=== PATIENT | male | born 1960 | race Caucasian/White ===

== ENCOUNTER 2017-02-22 11:27 | Inpatient (IN) | payer BC ==
[~2017-02-22] VITALS: Ht 190.5 cm; Wt 113.5 kg
[2017-02-22] VITALS (12 sets, daily range): BP systolic 106–150; BP diastolic 65–97; PULSE 66–72; RESP 12–20; TEMP 98.1–98.8; O2SAT 93–99
[2017-02-22] MEDS ORDERED: CLAR10CA3 PO (11:35)
[2017-02-22] MEDS ORDERED: SODIUM CHLORIDE 0.9% FLUSH 10 ML FLUSH IVF PRN (11:45)
[2017-02-22] MEDS ORDERED: SODIUM CHLORID 0.9% 500 ML INJ 500 ML IV ONE (11:45)
--- NOTE | 2017-02-22 11:45 | PD ---
HPI Chief Complaint: Chest Pain Time Seen by Provider: 11:44 Travel History International Travel<30 days: No Contact w/Intl Traveler<30days: No Traveled to known affect area: No History of Present Illness HPI 56 year old male with no significant medical history presents to the ED for evaluation of left sided chest pressure; intermittently occurring over the last week. Pt has been vacationing from [place]. He drove his grandchildren to [place] on Saturday, 5 days ago. He developed diaphoresis, light headed sensation, and left sided chest pressure. He went to the ED there where he stayed for 6 hours and was discharged with strict instructions to return to an ED if the symptoms occurred again. Pt states that he has had intermittent episodes but not as severe throughout the week and he did not tell his . These happen at rest or with activity. He cannot think of any exacerbating or alleviating factors. However, today he was driving when he became diaphoretic, lightheaded , and the left-sided chest pressure and could not drive anymore on his own, so his drove him here to the emergency department. Patient took 3 baby aspirin prior to arrival. He states the shortness does not radiate anywhere. It is on the left side of his chest. It is associated with the diaphoresis and lightheadedness sensation. He has no cardiac history. He does not smoke tobacco cigarettes. He has no associated shortness of breath. His father did have a quintuple bypass at age of 83. He has no other symptoms to report at this time. [facility] Past Medical History Medical History: Denies Significant Hx Social History Alcohol Use: No Tobacco Use: No Substance Use: No Allergies-Medications (Allergen,Severity, Reaction): Coded Allergies: No Known Allergies (Unverified , 02/22/17) Reported Meds & Prescriptions Reported Meds & Active Scripts Active Reported Claritin (Loratadine) 10 Mg Cap Unknown Dose PO DAILY Review of Systems Except as stated in HPI: all other systems reviewed are Neg Physical Exam Narrative GENERAL: Well-nourished male patient, in no acute distress. SKIN: Focused skin assessment warm/dry. HEAD: Atraumatic. Normocephalic. EYES: Pupils equal and round. No scleral icterus. No injection or drainage. ENT: No nasal bleeding or discharge. Mucous membranes pink and moist. NECK: Trachea midline. No JVD. CARDIOVASCULAR: Regular rate and rhythm. No murmur appreciated. RESPIRATORY: No accessory muscle use. Clear to auscultation. Breath sounds equal bilaterally. GASTROINTESTINAL: Abdomen soft, non-tender, nondistended. Hepatic and splenic margins not palpable. MUSCULOSKELETAL: No obvious deformities. No clubbing. No cyanosis. No edema. NEUROLOGICAL: Awake and alert. No obvious cranial nerve deficits. Motor grossly within normal limits. Normal speech. PSYCHIATRIC: Appropriate mood and affect; insight and judgment normal. Data Data Last Documented VS Vital Signs Date Time Temp Pulse Resp B/P Pulse Ox O2 Delivery O2 Flow Rate FiO2 02/22/17 12:10 70 18 109/65 96 2 02/22/17 12:03 Nasal Cannula 02/22/17 11:29 98.2 Orders Electrocardiogram (02/22/17 11:41) Basic Metabolic Panel (Bmp) (02/22/17 11:41) Ckmb (Isoenzyme) Profile (02/22/17 11:41) Complete Blood Count With Diff (02/22/17 11:41) Magnesium (Mg) (02/22/17 11:41) Prothrombin Time / Inr (Pt) (02/22/17 11:41) Act Partial Throm Time (Ptt) (02/22/17 11:41) Troponin I (02/22/17 11:41) Lipase (02/22/17 11:41) Chest, Single Ap (02/22/17 11:41) Ecg Monitoring (02/22/17 11:41) Bilateral Bp Monitoring (02/22/17 11:41) Iv Access Insert/Monitor (02/22/17 11:41) Oximetry (02/22/17 11:41) Oxygen Administration (02/22/17 11:41) Sodium Chloride 0.9% Flush (Ns Flush) (02/22/17 11:45) Nitroglycerin Sl (Nitrostat Sl) (02/22/17 11:45) Sodium Chlorid 0.9% 500 Ml Inj (Ns 500 M (02/22/17 11:45) CKMB (02/22/17 11:48) CKMB% (02/22/17 11:48) Admit Order (Ed Use Only) (02/22/17 13:09) Labs Laboratory Tests Test 02/22/17 11:48 White Blood Count 6.2 TH/MM3 Red Blood Count 5.27 MIL/MM3 Hemoglobin 16.2 GM/DL Hematocrit 46.7 % Mean Corpuscular Volume 88.7 FL Mean Corpuscular Hemoglobin 30.8 PG Mean Corpuscular Hemoglobin 34.7 % Concent Red Cell Distribution Width 12.9 % Platelet Count 169 TH/MM3 Mean Platelet Volume 8.7 FL Neutrophils (%) (Auto) 54.8 % Lymphocytes (%) (Auto) 34.7 % Monocytes (%) (Auto) 9.1 % Eosinophils (%) (Auto) 0.9 % Basophils (%) (Auto) 0.5 % Neutrophils # (Auto) 3.4 TH/MM3 Lymphocytes # (Auto) 2.2 TH/MM3 Monocytes # (Auto) 0.6 TH/MM3 Eosinophils # (Auto) 0.1 TH/MM3 Basophils # (Auto) 0.0 TH/MM3 CBC Comment DIFF FINAL Differential Comment Prothrombin Time 10.5 SEC Prothromb Time International 1.0 RATIO Ratio Activated Partial 26.6 SEC Thromboplast Time Sodium Level 139 MEQ/L Potassium Level 4.0 MEQ/L Chloride Level 107 MEQ/L Carbon Dioxide Level 26.7 MEQ/L Anion Gap 5 MEQ/L Blood Urea Nitrogen 14 MG/DL Creatinine 1.02 MG/DL Estimat Glomerular Filtration 75 ML/MIN Rate Random Glucose 96 MG/DL Calcium Level 8.3 MG/DL Magnesium Level 2.2 MG/DL Total Creatine Kinase 113 U/L Creatine Kinase MB 0.8 NG/ML Troponin I LESS THAN 0.02 NG/ML Lipase 145 U/L MDM Medical Decision Making Medical Screen Exam Complete: Yes Emergency Medical Condition: Yes Medical Record Reviewed: Yes Differential Diagnosis ACS versus esophageal spasm versus herpatic pre-drome versus muscle spasm versus anxiety versus less likely based on Wells criteria PE Narrative Course 56-year-old male presents to the emergency department for evaluation. Patient appears without distress. He took 3 baby aspirin prior to arrival. He is still having the chest pressure. Sublingual nitroglycerin was administered and after 2 tablets, pain completely subsided. Vital signs remain stable. CBC and BMP are without acute concern. Initial troponin is less than 0.02. EKG is normal sinus rhythm without any ST elevation or depression. I discussed the patient with my attending physician Dr. Burch. Patient will be admitted to the chest pain center for further evaluation. 1422 REDD De Guzman has evaluated patient and discussed with Dr. Fletcher, preparatory technician on-call for [facility] and they feel patient should be admitted to medicine with a consult to cardiology. CTPA is ordered to r/o PE as source of patient's pain, despite normal vital signs, no shortness of breath, and history more concerning for unstable angina. [address] Burgos. Pt has been admitted to the residents medical service and a consult will be placed to him. He requests pt remain NPO Diagnosis Primary Impression: Left chest pressure Admitting Information Admitting Physician Requests: Observation Condition: Stable Jeanine Rothman Feb 22, 2017 11:45
[2017-02-22] MEDS: NITROGLYCERIN 0.4 MG SL 25 TABS/BTL SL SCH ×3 (11:50→11:59)
[2017-02-22 12:05] LABS: AUTOMATED NEUTROPHIL # 3.4 TH/MM3 (1.8-7.7); BASOPHIL % 0.5 % (0.0-2.0); EOSINOPHIL # 0.1 TH/MM3 (0-0.4); EOSINOPHIL % 0.9 % (0.0-4.0); HEMATOCRIT 46.7 % (39.0-51.0); HEMO FLAGS DIFF FINAL; LYMPH % 34.7 % (9.0-44.0); LYMPHOCYTE # 2.2 TH/MM3 (1.0-4.8); MEAN CELL VOLUME 88.7 FL (80.0-100.0); MEAN CORPUSCULAR HEMOGLOBIN 30.8 PG (27.0-34.0); MEAN CORPUSCULAR HGB CONC 34.7 % (32.0-36.0); MONO % 9.1 % (0.0-8.0); NEUT % 54.8 % (16.0-70.0); PLATELET COUNT 169 TH/MM3 (150-450); RED BLOOD COUNT 5.27 MIL/MM3 (4.50-5.90); RED CELL DISTRIBUTION WIDTH 12.9 % (11.6-17.2); WHITE BLOOD COUNT 6.2 TH/MM3 (4.0-11.0)
[2017-02-22 12:13] LABS: APTT (PATIENT) 26.6 SEC (24.3-30.1); PROTHROMBIN TIME - PATIENT 10.5 SEC (9.8-11.6)
[2017-02-22 12:19] LABS: ANION GAP 5 MEQ/L (5-15); BICARBONATE 26.7 MEQ/L (21.0-32.0); BLOOD UREA NITROGEN 14 MG/DL (7-18); CHLORIDE 107 MEQ/L (98-107); GLOMERULAR FILTRATION RATE 75 ML/MIN (>89); MAGNESIUM 2.2 MG/DL (1.5-2.5); SODIUM (NA) 139 MEQ/L (136-145)
[2017-02-22 12:23] LABS: CREATINE KINASE 113 U/L (39-308)
[2017-02-22 12:35] LABS: CKMB 0.8 NG/ML (0.5-3.6)
--- NOTE | 2017-02-22 13:07 | RADRPT ---
EXAM DATE/TIME: 02/22/2017 12:29 [facility] COMPARISON: No previous studies available for comparison. INDICATIONS : Chest pain, sweating, and fatigue. MEDICAL HISTORY : None. SURGICAL HISTORY : None. ENCOUNTER: Initial ACUITY: 4 - 6 days PAIN SCORE: 3/10 LOCATION: Bilateral chest FINDINGS: A single view of the chest demonstrates the lungs to be symmetrically aerated without evidence of mas s, infiltrate or effusion. The cardiomediastinal contours are unremarkable. Osseous structures are intact. CONCLUSION: No acute disease. Dao Becerra MD on February 22, 2017 at 13:05 Board Certified Radiologist. This report was verified electronically.
[2017-02-22] MEDS ORDERED: IOHEXOL 350 MG/ML 10 ML VIAL (for RAD DIAG) IV ONE (14:00)
--- NOTE | 2017-02-22 14:48 | HHI.HP ---
[facility] Service Family Medicine Primary Care Physician Non-Staff Admission Diagnosis L sided chest pressure Diagnoses: International Travel<30 Days: No Contact w/Intl Traveler<30days: No Known Affected Area: No History of Present Illness 56 year old male with no significant medical history presents to the ED for evaluation of left sided chest pressure; intermittently occurring over the last week. Pt has been vacationing from [place]. He drove his grandchildren to [place] on Saturday, 5 days ago. He developed diaphoresis, light headed sensation, and left sided chest pressure. He went to the ED there where he stayed for 6 hours and was discharged with strict instructions to return to an ED if the symptoms occurred again. Pt states that he has had intermittent episodes but not as severe throughout the week and he did not tell his . These happen at rest or with activity. He cannot think of any exacerbating or alleviating factors. However, today he was driving when he became diaphoretic, lightheaded , and the left-sided chest pressure and could not drive anymore on his own, so his drove him here to the emergency department. Patient took 3 baby aspirin prior to arrival. He states the shortness does not radiate anywhere. It is on the left side of his chest. It is associated with the diaphoresis and lightheadedness sensation. He has no cardiac history. He does not smoke tobacco cigarettes. He has no associated shortness of breath. His father did have a quintuple bypass at age of 83. He has no other symptoms to report at this time. Past Family Social History Allergies: Coded Allergies: No Known Allergies (Unverified , 02/22/17) Physical Exam Vital Signs Vital Signs Date Time Temp Pulse Resp B/P Pulse Ox O2 Delivery O2 Flow Rate FiO2 02/22/17 12:10 70 18 109/65 96 2 02/22/17 12:05 71 12 123/70 96 02/22/17 12:03 98 Nasal Cannula 2 02/22/17 12:00 70 18 136/87 94 Nasal Cannula 2 02/22/17 11:51 89 99 02/22/17 11:51 100 Nasal Cannula 2 02/22/17 11:29 98.2 70 17 141/97 98 Physical Exam GENERAL: This is a well-nourished, well-developed patient, in no apparent distress. SKIN: No rashes, ecchymoses or lesions. Cool and dry. HEAD: Atraumatic. Normocephalic. No temporal or scalp tenderness. EYES: Pupils equal round and reactive. Extraocular motions intact. No scleral icterus. No injection or drainage. ENT: Nose without bleeding, purulent drainage or septal hematoma. Throat without erythema, tonsillar hypertrophy or exudate. Uvula midline. Airway patent. NECK: Trachea midline. No JVD or lymphadenopathy. Supple, nontender, no meningeal signs. CARDIOVASCULAR: Regular rate and rhythm without murmurs, gallops, or rubs. RESPIRATORY: Clear to auscultation. Breath sounds equal bilaterally. No wheezes , rales, or rhonchi. GASTROINTESTINAL: Abdomen soft, non-tender, nondistended. No hepato-splenomegaly , or palpable masses. No guarding. MUSCULOSKELETAL: Extremities without clubbing, cyanosis, or edema. No joint tenderness, effusion, or edema noted. No calf tenderness. Negative Homans sign bilaterally. NEUROLOGICAL: Awake and alert. Cranial nerves II through XII intact. Motor and sensory grossly within normal limits. Five out of 5 muscle strength in all muscle groups. Normal speech. Laboratory Laboratory Tests Test 02/22/17 11:48 White Blood Count 6.2 Red Blood Count 5.27 Hemoglobin 16.2 Hematocrit 46.7 Mean Corpuscular Volume 88.7 Mean Corpuscular Hemoglobin 30.8 Mean Corpuscular Hemoglobin 34.7 Concent Red Cell Distribution Width 12.9 Platelet Count 169 Mean Platelet Volume 8.7 Neutrophils (%) (Auto) 54.8 Lymphocytes (%) (Auto) 34.7 Monocytes (%) (Auto) 9.1 Eosinophils (%) (Auto) 0.9 Basophils (%) (Auto) 0.5 Neutrophils # (Auto) 3.4 Lymphocytes # (Auto) 2.2 Monocytes # (Auto) 0.6 Eosinophils # (Auto) 0.1 Basophils # (Auto) 0.0 CBC Comment DIFF FINAL Differential Comment Prothrombin Time 10.5 Prothromb Time International 1.0 Ratio Activated Partial 26.6 Thromboplast Time Sodium Level 139 Potassium Level 4.0 Chloride Level 107 Carbon Dioxide Level 26.7 Anion Gap 5 Blood Urea Nitrogen 14 Creatinine 1.02 Estimat Glomerular Filtration 75 Rate Random Glucose 96 Calcium Level 8.3 Magnesium Level 2.2 Total Creatine Kinase 113 Creatine Kinase MB 0.8 Troponin I LESS THAN 0.02 Lipase 145 Result Diagram: 02/22/17 1148 02/22/17 1148 Physician Certification Order for Inpatient Services The services are ordered in accordance with Medicare regulations or non- Medicare payer requirements, as applicable. In the case of services not specified as inpatient-only, they are appropriately provided as inpatient services in accordance with the 2-midnight benchmark. days is the estimated time the patient will need to remain in the hospital, assuming treatment plan goals are met and no additional complications. Sol Lara MD R2 Feb 22, 2017 14:48
--- NOTE | 2017-02-22 14:49 | HHI.HP ---
[facility] Service Family Medicine Primary Care Physician Non-Staff Admission Diagnosis L sided chest pressure Diagnoses: International Travel<30 Days: No Contact w/Intl Traveler<30days: No Known Affected Area: No History of Present Illness 56-year-old male, no significant medical history, presents with episode of chest tightness and sweating that started at 10:30 AM today while riding in the car. He describes the feeling as chest tightness and not exactly pain but if he were to where to put chest pain on a pain scale he would say a 2/10 pain. Patient had a similar episode on Saturday for 1 hour while riding in the car and went to the hospitalwith a full cardiac workup (EKG and troponins) negative. He says he has felt chest discomfort all week. He denies any shortness of breath or dizziness during the episode. He denies any radiation of the chest tightness to anywhere else in his body. He did not have nausea or vomiting. He shouldn't did not feel any stress at the time and does not feel like it was a panic attack. However, during the episode the patient did have feelings of impending doom. The past week the patient has been on on a long road trip has been in the car for a long period of time. Recently, he did break 3 of his ribs by jumping off a shelf in his home. He says he saw after that and there was no decision for any medical management. Review of Systems Constitutional: DENIES: Fever, Weight loss Endocrine: DENIES: Polyuria Eyes: DENIES: Blurred vision, Eye pain Ears, nose, mouth, throat: DENIES: Nasal discharge, Epistaxis Respiratory: DENIES: Cough, Shortness of breath Cardiovascular: DENIES: Syncope Gastrointestinal: DENIES: Constipation, Diarrhea Genitourinary: DENIES: Urinary incontinence Musculoskeletal: DENIES: Back pain Integumentary: DENIES: Pruritus, Rash Neurologic: DENIES: Headache, Seizures Psychiatric: DENIES: Depression Past Family Social History Past Medical History Patient states he has had high blood pressures recently but has never been started on medication 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, last physical was on August 21 and there were no significant remarks on exam Past Surgical History 1983 tonsillectomy Allergies: Coded Allergies: No Known Allergies (Unverified , 02/22/17) Family History dad- alive, quintuple bypass at 83 - open heart mom - ablation of heart, afibb Social History Denies 3 Physical Exam Vital Signs Vital Signs Date Time Temp Pulse Resp B/P Pulse Ox O2 Delivery O2 Flow Rate FiO2 02/22/17 12:10 70 18 109/65 96 2 02/22/17 12:05 71 12 123/70 96 02/22/17 12:03 98 Nasal Cannula 2 02/22/17 12:00 70 18 136/87 94 Nasal Cannula 2 02/22/17 11:51 89 99 02/22/17 11:51 100 Nasal Cannula 2 02/22/17 11:29 98.2 70 17 141/97 98 Physical Exam GENERAL: This is a well-nourished, well-developed patient, in no apparent distress. SKIN: No rashes, ecchymoses or lesions. Cool and dry. HEAD: Atraumatic. Normocephalic. No temporal or scalp tenderness. EYES: Pupils equal round and reactive. Extraocular motions intact. No scleral icterus. No injection or drainage. ENT: Nose without bleeding, purulent drainage or septal hematoma. Throat without erythema, tonsillar hypertrophy or exudate. Uvula midline. Airway patent. Teeth are poorly taken care of and multiple cavities are noted NECK: Trachea midline. No JVD or lymphadenopathy. Supple, nontender, no meningeal signs. CARDIOVASCULAR: Regular rate and rhythm without murmurs, gallops, or rubs. RESPIRATORY: Clear to auscultation. Breath sounds equal bilaterally. No wheezes , rales, or rhonchi. GASTROINTESTINAL: Abdomen soft, non-tender, nondistended. No hepato-splenomegaly , or palpable masses. No guarding. MUSCULOSKELETAL: Extremities without clubbing, cyanosis, or edema. No joint tenderness, effusion, or edema noted. No calf tenderness. Negative Homans sign bilaterally. No tenderness to palpation over chest area. The patient says the pain is not reproducible by palpation. NEUROLOGICAL: Awake and alert. Cranial nerves II through XII intact. Motor and sensory grossly within normal limits. Five out of 5 muscle strength in all muscle groups. Normal speech. Laboratory Laboratory Tests Test 02/22/17 11:48 White Blood Count 6.2 Red Blood Count 5.27 Hemoglobin 16.2 Hematocrit 46.7 Mean Corpuscular Volume 88.7 Mean Corpuscular Hemoglobin 30.8 Mean Corpuscular Hemoglobin 34.7 Concent Red Cell Distribution Width 12.9 Platelet Count 169 Mean Platelet Volume 8.7 Neutrophils (%) (Auto) 54.8 Lymphocytes (%) (Auto) 34.7 Monocytes (%) (Auto) 9.1 Eosinophils (%) (Auto) 0.9 Basophils (%) (Auto) 0.5 Neutrophils # (Auto) 3.4 Lymphocytes # (Auto) 2.2 Monocytes # (Auto) 0.6 Eosinophils # (Auto) 0.1 Basophils # (Auto) 0.0 CBC Comment DIFF FINAL Differential Comment Prothrombin Time 10.5 Prothromb Time International 1.0 Ratio Activated Partial 26.6 Thromboplast Time Sodium Level 139 Potassium Level 4.0 Chloride Level 107 Carbon Dioxide Level 26.7 Anion Gap 5 Blood Urea Nitrogen 14 Creatinine 1.02 Estimat Glomerular Filtration 75 Rate Random Glucose 96 Calcium Level 8.3 Magnesium Level 2.2 Total Creatine Kinase 113 Creatine Kinase MB 0.8 Troponin I LESS THAN 0.02 Lipase 145 Result Diagram: 02/22/17 1148 02/22/17 1148 Assessment and Plan Assessment and Plan 56-year-old male, with no significant history, presents to the ED with second episode of chest pain this week. Differential includes PE, unstable angina, or costochondritis Code Status Full code Discussed Condition With Patient seen and examined with Dr. Prince Problem List: (1) Left chest pressure Status: Acute Plan: Differential includes PE, unstable angina, or costochondritis. Patient took 3 aspirin before arrival to the ED and this did not resolve his pain. However, patient's pain did resolve with nitroglycerin in the ED. Primary concern at this time is for unstable angina. - CXR: no acute disease - CTA: Negative - EKG: Negative - Troponin 0.22 -Cardiology follow-up: Donefollow-up Recs - patient nothing by mouth for cardiac catheterization Follow-up results of cardiac catheter (2) Ribs, multiple fractures Status: Chronic Plan: As stated by patient - Not evident on chest x-ray or CT at this time (3) FEN/PPX Status: Acute Plan: Fluids: None, appears hydrated on exam with appropriate I/Os, NPO until cardiac cath only Electrolytes: f/u BMP Nutrition: NPO until cardiac cath GI ppx: N/A DVT ppx: Sol Santos MD R2 Feb 22, 2017 14:49
--- NOTE | 2017-02-22 15:32 | RADRPT ---
EXAM DATE/TIME: 02/22/2017 15:17 [facility] COMPARISON: No previous studies available for comparison. INDICATIONS : Chest tightness, diaphoresis,lethargy. IV CONTRAST: 75 cc Omnipaque 350 (iohexol) IV RADIATION DOSE: 8.56 CTDIvol (mGy) MEDICAL HISTORY : None SURGICAL HISTORY : None. ENCOUNTER: Initial ACUITY: 2 weeks PAIN SCALE: 8/10 LOCATION: Bilateral chest TECHNIQUE: Volumetric scanning of the chest was performed using a pulmonary embolism protocol MIP images were re constructed. Using automated exposure control and adjustment of the mA and/or kV according to patien t size, radiation dose was kept as low as reasonably achievable to obtain optimal diagnostic quality images. DICOM format image data is available electronically for review and comparison. Follow-up recommendations for detected pulmonary nodules are based at a minimum on nodule size and pa tient risk factors according to Fleischner Society Guidelines. FINDINGS: PULMONARY ARTERIES: No filling defects are seen in the pulmonary arteries through the segmental level. LUNGS: There is no consolidation or pneumothorax . No concerning pulmonary nodule is visualized. PLEURAE: There is no pleural thickening or pleural effusion. MEDIASTINUM: There is good visualization of the great vessels of the middle mediastinum. No evidence of mediastin al or hilar adenopathy/mass. MUSCULOSKELETAL: Within normal limits for patient age. MISCELLANEOUS: The visualized upper abdominal organs demonstrate no acute abnormality. CONCLUSION: 1. Negative examination. Jd Fox MD on February 22, 2017 at 15:28 Board Certified Radiologist. This report was verified electronically.
[2017-02-22] MEDS ORDERED: HEPARIN-NS/PF INJ 500 ML ONE (18:02)
[2017-02-22] MEDS ORDERED: VERAPAMIL HCL 5 MG/2 ML VIAL ONE (18:03)
[2017-02-22] MEDS ORDERED: MIDAZOLAM HCL 2 MG/2 ML VIAL ONE (18:03)
[2017-02-22] MEDS ORDERED: HEPARIN SODIUM - IV 10,000 UNITS/10 ML VIAL ONE (18:03)
[2017-02-22] MEDS ORDERED: NITROGLYCERIN INJ 5 ML ONE (18:05)
--- NOTE | 2017-02-22 19:19 | CATHPROC ---
[employer] HIS Report Study Information Study Number Admission Scheduled Start Study Start [id number] Feb 22 2017 4:59PM 02/22/2017 Feb 22 2017 6:03PM Study Type [place] Service Left/Possible PCI Cardiac Catheterization Admit Source Facility Department Emergency department [facility] - Language Assistant Physician and Clinical Staff Initial Jose Norris Conditioner Tumbler Adriana Torre,RN Conditioner Tumbler Harry Salmeron,RICHIE Recorder Adriana Pham,RT(R) Recorder Esau RizviRT(R) Scrub Lay Thomas,KONRAD TECH2 Procedures Performed Procedure Location (Site) Vessel Name Coronary Angiograms LCA Left Coronary Coronary Angiograms RCA Right Coronary IVUS Lft Main Left Coronary Wire insertion Radial (right) Radial Art. 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 Description Size Mfg Part Number Used/Scraped WIRE, BALANCE MIDDLEWEIGHT [id number] 18:40 [employer] 190CM Used 190CM *[id number] TRANSDUCER, TRUWAVE [id number] 18:09 TRIVEDI CUENCA * Used W/STOCKCOCK *[id number] 534-518T *[id number] 534-518T *[id number] 534-520T *[id number] 534-521T *[id number] 534-523T *[id number] 18:09 Spotsetter PACK, CCL CUSTOM * Used *[id number] 18:09 Spotsetter SUPPORT, ARTERIAL ADULT 18021 *[id number] Used [id number] 18:38 MEDTRONIC/AVE EBU 3.5 Z2 GUIDE CATHETER FR 6 Used *[id number] BAND, RADIAL COMPRESSION TR [id number] 19:01 [employer]ention[employer] MEDICAL 29CM Used LARGE 29 *[id number] 18:40 [email or web address] PACK, ANGIOPLASTY * [id number] Used [id number] 18:09 [email or web address] WIRE, EXCHANGE 260CM 3MMJ 260CM Used *[id number] 18:09 NAMIC MANIFOLD, 4 PORT * Used *[id number] 18:09 NYCOMED OMNIPAQUE, 350 MG, 150ML 150ML [id number] Used [id number] 18:09 [employer] MEDICAL BLANKET,WARM AIR CCL * Used *[id number] SHEATH, FR6 TRANSRADIAL RM*[id number] 18:09 Nagual Sounds MEDICAL FR 6 Used SLENDER 10CM *[id number] CATHETER, [employer] [place] [id number] 18:38 VOLCANO Used IMAGING *[id number] Equipment Model, Serial, Lot Number and Expiration Data Description Model Number Serial Number Lot Number Expiration Date PACK, ANGIOPLASTY [id number] 08-07-2019 History: Allergies Allergy Reaction No Known Allergies History: Risk Factors Family History of Hypertension Dyslipidemia Previous TN Previous Heart Failure Premature CAD No No Yes No No Prior Valve Prior PCI Prior CABG Surgery No No No Cerebrovascular Peripheral Artery Chronic Lung On Dialysis Diabetes Disease Disease Disease No No No No No History: Symptoms/Diagnosis Selection Items Chest pain History: Stress Tests Stress or Imaging Studies Performed No History: Other Disease Selection Items HTN History: Other Current Smoker No Labs Hgb (g/dl) Hct (%) RBC (MIL/MM3) WBC (l/cumm) Platelets (thousands) 11.60-17.00 35.00-51.00 4.00-5.90 4.00-11.00 150.00-450.00 16.2 46.7 5.2 6.2 169 Glucose (mg/dl) BUN (mg/dl) Creatinine (mg/dl) BUN:Creatinine (1:x) 74.00-106.00 7.00-18.00 0.50-1.30 10.00-20.00 96 14 1.0 14 Na (meq/l) K (meq/l) Cl (meq/l) CO2 (mmol/L) Ca (mg/dl) 136.00-145.00 3.50-5.10 98.00-107.00 21.00-32.00 8.50-10.10 139 4 107 26.7 8.3 PT (sec) PTT (sec) INR (PTT:PT) 9.80-11.60 24.30-30.10 0.90-1.10 10.5 26.6 1 Troponin I (ng/ml) CPK (u/l) CPK-MB (ng/ML) 0.02-0.05 26.00-308.00 0.50-3.60 0.02 113 0.8 Medication Medication Total Dose (Bolus/Oral) Medication Total Dosage/Unit FENTANYL 25 mcg HEPARIN 7700 units RADIAL COCKTAIL 5 mL (Bolus) VERSED 0.5 mg Medications (Bolus/Oral) Medication Time Given Dosage/Unit Administered By Reason VERSED 02/22/2017 6:17:00 PM 0.5 mg Hesher Adriana 0.5 mg VERSED given in lab by Adriana Torre, RICHIE via Peripheral IV. FENTANYL 02/22/2017 6:18:00 PM 25 mcg Adriana Torre 25 mcg FENTANYL given in lab by Adriana Torre RN via Peripheral IV. HEPARIN 02/22/2017 6:39:48 PM 7700 units Adriana Torre 7700 units HEPARIN given in lab by Adriana Torre, RICHIE via Peripheral IV. RADIAL COCKTAIL 02/22/2017 7:19:30 PM 5 mL (Bolus) Adriana Torre 5 mL (Bolus) RADIAL COCKTAIL given in lab by Adriana Torre, RICHIE via Radial. Using [Solution Name]. 44 00 HEPARIN,2.5 VERAPAMIL, 200 NITRO Medication (Drip) Medication Time Given Dosage/Unit Concentration/Unit Diluent (ml) Solution IV Solutions 02/22/2017 6:09:09 PM 0 mL (IV) 500 NaCl .9 Patient arrived on IV Solutions in Left Antecubital via Peripheral IV. Pump/Drip Flow = 20 ml/hr usin g NaCl .9. Initial Case Assessment Cardiovascular HR Rhythm NIBP 81 REG 149/73 Edema Present Skin color Skin None Normal Warm Circulatory - Right Pulses Dorsalis Pedis Femoral Radial 2 2 2 Scale (0,1,2,3,4,d) Scale (0,1,2,3,4,d) Circulatory - Lower Extremities Color Lower Right Normal Neurological State Oriented to time-place- Alert Moves all extremities person Respiration - General Respiration Rate SpO2 (%) (B/min) 18 98 Final Case Assessment Cardiovascular HR Rhythm NIBP 70 REG 149/67 Edema Present Skin color Skin None Normal Warm Circulatory - Right Pulses Dorsalis Pedis Femoral Radial 2 2 2 Scale (0,1,2,3,4,d) Scale (0,1,2,3,4,d) Circulatory - Lower Extremities Color Lower Right Normal Neurological State Oriented to time-place- Alert Moves all extremities person Respiration - General Respiration Rate SpO2 (%) (B/min) 17 96 Chronological Log Time Study Chronological Log 17:50:00 Patient arrived via Bed. Vitals capture started with the following parameters, Patient=Adult, Interval=5 min, Initial Pr ozcyvs=294 mmHg, 18:02:37 Deflation Rate=5 mmHg, Cuff placed on Left Leg 18:03:11 Patient Name, D.O.B, / Armband Verified By R.N. 18:03:12 Consent signed by the physician and the patient and verified by the Language Assistant staff. 18:03:13 Pre-op and post- op instructions given; patient acknowledges understanding of instructions. 18:03:14 Verbal Stimulation=2 Physical Stimulation=2 Airway=2 Respiration=2 TOTAL=8. (0=absent, 1=li mited, 2=present) 18:06:14 HR=68 bpm, HUDP=148/71 mmhg, SpO2=98.0 %, Resp=19 B/min, Pain=0, Kiarra=10, Gordon=2 18:07:02 Allens test performed on the right radial and ulnar artery with a positive result by homa acosta er 18:07:20 Patient has been NPO for More than 6Hrs. 18:07:23 Skin Breakdown-none 18:08:36 Reference ECG taken 18:08:42 A # 18 IV was noted in the Antecubital (left). Grade = 0 18:09:09 Patient arrived on IV Solutions in Left Antecubital via Peripheral IV. Pump/Drip Flow = 20 ml/hr using NaCl .9. 18:09:27 History and physical on the chart or being dictated. Assessment: Initial Case, HR=81 BPM, Rhythm=REG, KNGO=662/73 mmhg, Edema=None, Color=Normal, Sk in = Warm Right Pulses: Reagan Ped=2, Femoral=2, Radial=2 18:09:28 Lower Right Extremities: Color=Normal Neurological: State=Alert, Ox3, GUAN Respiration: Resp=18 B/min, SpO2=98 % 18:09:53 Right Radial and groin(s) prepped with 2% chlorhexidine, and with a 3 min. waiting time. 18:10:00 MD arrived. 18:11:00 Case Start 18:11:04 Pressure channel 1 zeroed. 18:11:16 HR=71 bpm, DDAH=882/72 mmhg, SpO2=98.0 %, Resp=20 B/min, Pain=0, Kiarra=10, Gordon=2 Time Out. Correct patient, correct procedure,correct physician, ,power injector not loaded with contrast with surgical 18:11:40 team present. Time Out Concurred by MD, individual staff and CLINICAL LAB ASSISTANT in procedure Time Out. Correct patient, correct procedure,correct physician, ,power injector loaded or not l oaded with contrast with 18:13:00 surgical team present. Time Out Concurred by MD, individual staff and CLINICAL LAB ASSISTANT in procedure 18:16:15 HR=71 bpm, JCYZ=577/73 mmhg, SpO2=98.0 %, Resp=13 B/min, Pain=0, Kiarra=10, Gordon=2 18:17:00 0.5 mg VERSED given in lab by Adriana Torre, RN via Peripheral IV. 18:18:00 25 mcg FENTANYL given in lab by Adriana Torre, RN via Peripheral IV. 18:19:55 Access site was Radial Artery.RIGHT A SHEATH, FR6 TRANSRADIAL SLENDER 10CM FR 6 was advanced into the Fem Art (right) using the Per cutaneous 18:19:59 technique. A JR 5.0 INFINITI CATHETER FR 5 was advanced over a wire. OMNIPAQUE, 350 MG, 150ML 150ML was us ed for 18:20:59 injections. 18:21:18 HR=88 bpm, LYJR=365/70 mmhg, SpO2=97.0 %, Resp=20 B/min, Pain=0, Kiarra=10, Gordon=2 Recorded Pressure: LV, HR=85, Condition=Condition 1 18:21:55 (Left Ventricle) LV 108/4/8 Recorded Pressure: LV, Ao, HR=87, Condition=Condition 1 18:22:30 (Left Ventricle) LV 108/5/5, (Aorta) Ao 107/78/91 18:26:15 HR=80 bpm, MEBB=687/62 mmhg, SpO2=94.0 %, Resp=19 B/min, Pain=0, Kiarra=10, Gordon=2 18:27:30 The RCA was injected and visualized at various angles. OMNIPAQUE, 350 MG, 150ML 150ML used . After removing the current catheter a JL 3.5 INFINITI CATHETER FR 5 was advanced over a WIRE, E XCHANGE 260CM 18:28:55 3MMJ 260CM. 18:31:14 HR=72 bpm, KHJQ=808/62 mmhg, SpO2=95.0 %, Resp=21 B/min, Pain=0, Kiarra=10, Gordon=2 Recorded Pressure: Ao, HR=72, Condition=Condition 1 18:31:27 (Aorta) Ao 111/74/92 18:32:42 The LCA was injected and visualized at various angles. OMNIPAQUE, 350 MG, 150ML 150ML used . 18:34:44 Catheter was removed 18:36:17 HR=80 bpm, VQSP=144/66 mmhg, SpO2=95.0 %, Resp=18 B/min, Pain=0, Kiarra=10, Gordon=2 A EBU 3.5 Z2 GUIDE CATHETER FR 6 was advanced over a wire. OMNIPAQUE, 350 MG, 150ML 150ML was u sed for 18:38:37 injections. 18:39:48 7700 units HEPARIN given in lab by Adriana Torre RN via Peripheral IV. 18:41:16 HR=75 bpm, JBSB=168/71 mmhg, SpO2=96.0 %, Resp=8 B/min, Pain=0, Kiarra=10, Gordon=2 18:42:44 A WIRE, BALANCE MIDDLEWEIGHT 190CM 190CM was inserted via Radial (right). 18:46:17 HR=76 bpm, JXPL=311/74 mmhg, SpO2=96.0 %, Resp=22 B/min, Pain=0, Kiarra=10, Gordon=2 18:51:20 HR=69 bpm, SZZP=847/66 mmhg, SpO2=98.0 %, Resp=18 B/min, Pain=0, Kiarra=10, Gordon=2 18:54:46 An CATHETER, [employer] IMAGING was advanced through the lesion. Images saved onto IVUS hard drive 18:56:19 HR=72 bpm, JRDX=214/72 mmhg, SpO2=96.0 %, Resp=22 B/min, Pain=0, Kiarra=10, Gordon=2 18:57:41 IVUS in progress using CATHETER, [employer] IMAGING 18:59:03 IVUS catheter removed 18:59:58 Wire removed 19:00:12 The LCA was injected and visualized at various angles. OMNIPAQUE, 350 MG, 150ML 150ML used . 19:01:18 HR=72 bpm, OTLR=862/67 mmhg, SpO2=97.0 %, Resp=21 B/min, Pain=0, Kiarra=10, Gordon=2 19:01:27 A WIRE, EXCHANGE 260CM 3MMJ 260CM was inserted via Radial (right). 19:01:33 Catheter was removed Assessment: Final Case, HR=70 BPM, Rhythm=REG, ZZAR=238/67 mmhg, Edema=None, Color=Normal, Ski n = Warm Right Pulses: Reagan Ped=2, Femoral=2, Radial=2 19:02:15 Lower Right Extremities: Color=Normal Neurological: State=Alert, Ox3, GUAN Respiration: Resp=17 B/min, SpO2=96 % 19:03:30 Catheter(s) removed without difficulty Radial Compression Device Used. 8 mLs of air placed in BAND, RADIAL COMPRESSION TR LARGE 29 29 CM. Affected 19:03:34 hand 98 % O2 saturation. 19:04:26 Sterile dressing applied to site 19:04:26 No case complications noted. 19:04:27 Cine recording checked. 19:06:23 HR=66 bpm, WIBC=515/65 mmhg, SpO2=97.0 %, Resp=19 B/min, Pain=0, Kiarra=10, Gordon=2 19:08:01 Case End 19:11:20 HR=66 bpm, WFXE=383/73 mmhg, SpO2=99.0 %, Resp=15 B/min, Pain=0, Kiarra=10, Gordon=2 5 mL (Bolus) RADIAL COCKTAIL given in lab by Adriana Torre, RN via Radial. Using [Solution Na me]. 4400 19:19:30 HEPARIN,2.5 VERAPAMIL, 200 NITRO End Study - Contrast Media Used In Study Contrast Total Opened (mL) Total Used (mL) Total Wasted (mL) Omnipaque 80 80 0 End Study - Maximum Contrast Load Max Contrast Load (mL) 555.0 End Study - Radiation Exposure Fluoro Time (minutes) 9.6 End Study - Sheaths Sheaths Pulled By Sheath Hold Time (min) Jose Burgos End Study - Patient Disposition Complications Transferred To No Regular Bed
--- NOTE | 2017-02-22 19:25 | MB ---
cc: WOODROW PATEL DO DATE OF CONSULTATION 02/22/17 REASON FOR CONSULTATION Chest pain. HISTORY OF PRESENT ILLNESS Herman Wells is a pleasant 56-year-old male who presented to [facility] emergency room on February 22, 2017 due to chest pain. He states that over the past week or two he has been having chest pain on and off and, during these episodes, he seems to get diaphoretic. He and his are here vacationing from [place] and they originally drove his grandchildren to [place]. While he was there, he started developing chest pain and lightheadedness as well as diaphoresis. He went to the emergency room. While there, he had two troponins which were negative and they released him and said if he had any more symptoms then he should return to the emergency room. They then went on to [place] to visit his in-laws. He continued to have episodes and so on their way north he decided that at that time he needed to thread puller and his drove him to the hospital. He took three baby aspirin prior to arriving. In the ER, he was given nitro SL which helped his pain. He also has noted his blood pressure has been elevated lately. He states that the pain is somewhat of a pressure on the left side of his chest but does not radiate anywhere. He gets mildly short of breath with this. He says that he gets diaphoretic and somewhat lightheaded occasionally. He has never had anything like this before. He did say while at his in-laws he was washing his car which took some time and he had no sensation of this. Also, while at home he normally cuts his grass by a push mower which takes him an hour to two hours without pain. In seeing him, he has continued to have mild chest pain every now and then while in the emergency room. During the episodes, he also has an impending sense of . PAST MEDICAL HISTORY Recently had a physical with labs which was all within normal limits. Occasionally his blood pressure has been mildly high at 140/80, otherwise normally 120/70. PAST SURGICAL HISTORY Tonsillectomy (1982). ALLERGIES NO KNOWN DRUG ALLERGIES. MEDICATIONS Claritin 10 mg daily. FAMILY HISTORY Father is alive, had triple bypass at the age of 83. Mother had an ablation of her heart for A. fib. Denies premature coronary artery disease or sudden cardiac within the family. SOCIAL HISTORY Denies tobacco, alcohol or drug abuse. REVIEW OF SYSTEMS 14-systems were reviewed including osteopathic. Pertinent positives and negatives above otherwise negative. PHYSICAL EXAMINATION VITAL SIGNS: Temperature 98.2, heart rate 70, blood pressure 106/73, respirations 16, pulse ox 99% on 2 liters. GENERAL: In general the patient appears well in no acute distress, alert, awake and oriented x3. HEENT: Extraocular muscles intact. Mucous membranes moist. NECK: Supple. No JVD at 45 degrees. No carotid bruits heard bilaterally. Carotid upstroke is brisk in nature. HEART: Regular rate and rhythm. Positive first and second heart sounds with no murmurs, gallops or rubs. LUNGS: Clear to auscultation bilaterally. No wheezes, rales or rhonchi. ABDOMEN: Soft, nontender, nondistended. No organomegaly noted. EXTREMITIES: No clubbing, cyanosis or edema. Femoral and distal pulses are intact bilaterally. NEUROLOGIC: No focal deficits. SKIN: Warm, dry and intact. OSTEOPATHIC: No kyphoscoliosis, lordosis or paraspinal tender points. LABORATORY FINDINGS Hemoglobin 16.2, hematocrit 46.7, platelets 169. Potassium 4.0, BUN 14, creatinine 1.02, troponin 0.02. CARDIOLOGY STUDIES Electrocardiogram (February 22, 2017 11:52) sinus rhythm, no acute ST-T wave changes. RECOMMENDATIONS IMPRESSION 1. Chest pain concerning for coronary insufficiency. 2. Mild hypertension, especially this week, with episodes of chest pain and diaphoresis. 3. Family history of heart disease. RECOMMENDATIONS 1. Mr. Wells is presenting with chest pain that is overall concerning for coronary insufficiency. In lieu of stress testing, I did discuss with him consideration of cardiac catheterization as if stress test is negative and he continues to have these episodes I would still be concerned for coronary insufficiency. 2. Risks, benefits and alternatives of cardiac catheterization were explained to him and he consented as such. 3. We will plan on taking him to the lab to definitively define his coronary anatomy. 4. We will check a 2-D echo to look at his overall left ventricular function, cardiac structure and possible valvulopathies. 5. Further recommendations after coronary visualization. Thank you for allowing me to see Mando Wells. If there are any questions, please do not hesitate to call. Woodrow SAWYER/ /5:38 PM /6:58 PM [facility]
[2017-02-22] MEDS ORDERED: MISC INFORMATION XX ONE (19:30)
[2017-02-23] VITALS (12 sets, daily range): BP systolic 103–109; BP diastolic 70–72; PULSE 60–80; RESP 18–20; TEMP 97.7–98; O2SAT 93–97
--- NOTE | 2017-02-23 07:26 | MA ---
cc: WOODROW PATEL DO DATE: February 22, 2017 PROCEDURE Left heart catheterization, coronary angiogram, IVUS Left Main, Moderate Sedation 50 mins PREPROCEDURE DIAGNOSIS Chest pain concerning for coronary insufficiency. POSTPROCEDURE DIAGNOSIS Mild coronary artery disease. MEDICATIONS 1. Versed 0.5 mg. 2. Fentanyl 25 mcg. 3. Heparin 12,100 units. 4. Nitro 200 mcg. 5. Verapamil 2.5 mg. CONTRAST USED 80 cc FLUOROSCOPY: 9.6 minutes SEDATION: Moderate sedation 50 minutes. ESTIMATED BLOOD LOSS: 10 cc. PROCEDURAL SUMMARY: Mando Wells is a pleasant 56-year-old male who presented to [facility] due to chest pain. He has previously presented to the hospital in [place], with similar type chest pain and was told to return to an emergency room if he continued to have it. He as they were traveling to [place]. He started consistently having the pain again. Because of this he came to the emergency room. On arrival troponins were negative and his EKG showed no ischemic changes. This chest pain was concerning enough in typical in the for coronary insufficiency. It was felt reasonable to forego a stress test as if it was negative I would still be concerned for significant coronary artery disease. Risks, benefits and alternatives were explained to him and he consented as such. He was brought to the lab and prepped in the usual sterile fashion. Right radial artery was accessed using a modified Seldinger technique and placement of a 5/6 Swedish slender sheath. This was easily aspirated and flushed. A JR-4 was advanced over a J-wire to the ascending aorta and across the aortic valve for measurement of left ventricular pressure. This is pulled back across the aortic valve showing no significant gradient of aortic stenosis. JR-4 was then used for selective angiography of the right coronary system. JR-4 was exchanged out for a JL-3.5 which was used for selective angiography of the left coronary system. As there was concern for ostial left main disease. The JL-3.5 was then exchanged for an EBU 3.5 guide catheter. The patient was given additional heparin for an anticoagulant. The BMW wire was advanced down the LAD. IVUS catheter was then placed into the LAD and recorded point back to make sure that the guide catheter was not in the aorta so ostium of the left main to be measured. IVUS catheter was then removed. BMW wire was removed and final angiogram shows no disruption of his coronary arteries. EBU guide was then removed. A radial band was placed over his arteriotomy site for hemostasis. The patient left the cardiovascular lab director cardiovascularly stable. FINDINGS Left main large size vessel with adequate reflux in certain views it has a superior takeoff and there appears to be some pinching of the ostium. It was concerning for left main disease. IVUS catheter was used and showed no significant disease with normal size vessel throughout, from the ostium to the distal portion. LAD normal-size vessel with mild luminal irregularities throughout the [id number] portion. It gives off two major diagonals which overall have tortuosity but no significant disease. Left circumflex is a normal-size vessel with mild tortuosity. It gives off one major obtuse marginal that has an upper and lower branch with tortuosity but no significant disease. RCA normal-size vessel with significant tortuosity at the proximal portion. It is a dominant vessel by nature. The PDA is overall the small vessel with a 40% lesion in the midportion of that and significant tortuosity. Left ventricular end-diastolic pressure 5. IMPRESSION 1. Chest pain which appears to be noncoronary in nature. 2. Mild coronary artery disease with a left main which was felt to be a superior takeoff but by IVUS shows no significant disese. Overall mild to moderate disease in a small PDA distally. RECOMMENDATIONS 1. Mr. Wells presented with chest pain and was concerning for coronary insufficiency and during his catheterization was found to have no significant coronary artery disease to explain his chest pain. 2. He will be watched overnight and if stable in the morning after echocardiogram to be discharged home. 3. As he does have mild to moderate disease in his PDA he will be started on aspirin 81 mg daily. 4. Another possible cause of his symptoms may be arrhythmia and he will be watched on telemetry overnight. He continues to have symptoms consideration could be made for a Holter or event monitor in the outpatient setting. 5. We will obtain a 2-D echo in the morning. 6. He was instructed not to lift more than 10 pounds for 3 days with his right arm. 7. Also he and his will be traveling and I explained that he should not drive for the next 24 hours, and he and his understand this. Thank you for allowing me to see Mando Wells if any questions please do not hesitate to call. Woodrow SAWYER/karina /11:31 PM /7:06 AM MTDD
--- NOTE | 2017-02-23 08:52 | HHI.DCPOC ---
Discharge Care Plan Diagnosis: (1) Left chest pressure Goals to Promote Your Health * To prevent worsening of your condition and complications * To maintain your health at the optimal level Directions to Meet Your Goals Take your medications as prescribed Follow your dietary instruction Follow activity as directed Keep your appointments as scheduled Take your immunizations and boosters as scheduled If your symptoms worsen call your PCP, if no PCP go to Urgent Care Center or Emergency Room Smoking is Dangerous to Your Health. Avoid second hand smoke Call the 24-hour hour crisis hotline for domestic abuse at Dao Moses MD R3 Feb 23, 2017 08:52
[2017-02-23] MEDS ORDERED: ASPI81CH25 CHEW (08:53)
[2017-02-23] MEDS ORDERED: ASPIRIN 81 MG CHEW TAB CHEW SCH (09:00)
--- NOTE | 2017-02-23 09:43 | ECHRPT ---
Indication: CONCLUSIONS The left ventricular systolic function is low normal with an estimated ejection fraction in the rang e of 50- 55%. Trace mitral valve regurgitation. There is trace tricuspid valve regurgitation. BP: / HR: Rhythm: MEASUREMENTS (Male / Female) Normal Values Technical Quality:Fair 2D ECHO LV Diastolic Diameter PLAX 4.2 cm 4.2 - 5.9 / 3.9 - 5.3 cm LV Systolic Diameter PLAX 3.2 cm IVS Diastolic Thickness 1.1 cm 0.6 - 1.0 / 0.6 - 0.9 cm LVPW Diastolic Thickness 0.8 cm 0.6 - 1.0 / 0.6 - 0.9 cm LV Relative Wall Thickness 0.5 LA Systolic Diameter LX 3.1 cm 3.0 - 4.0 / 2.7 - 3.8 cm M-MODE Aortic Root Diameter MM 4.4 cm AV Cusp Separation MM 2.5 cm DOPPLER AV Peak Velocity 119.0 cm/s AV Peak Gradient 5.7 mmHg LVOT Peak Velocity 85.9 cm/s LVOT Peak Gradient 3.0 mmHg Mitral E Point Velocity 62.2 cm/s Mitral A Point Velocity 54.3 cm/s Mitral E to A Ratio 1.1 TR Peak Velocity 238.0 cm/s TR Peak Gradient 22.7 mmHg FINDINGS LEFT VENTRICLE Normal left ventricular size. Wall thickness is normal. The left ventricular systolic function is low normal with an estimated ejection fraction in the rang e of 50- 55%. No regional wall motion abnormalities are present. This study was not technically sufficient to allow for evaluation of left ventricular diastolic func tion. RIGHT VENTRICLE Normal right ventricular size and systolic function. LEFT ATRIUM The left atrial size is normal. RIGHT ATRIUM The right atrial size is normal. ATRIAL SEPTUM Normal atrial septal thickness. AORTA Sinus of Valsalva measures 3.9cm in diameter, which is upper limits of normal MITRAL VALVE Grossly normal. Trace mitral valve regurgitation. No mitral valve stenosis. AORTIC VALVE Trileaflet aortic valve. No aortic valve regurgitation. No aortic valve stenosis. TRICUSPID VALVE Grossly normal. There is trace tricuspid valve regurgitation. No tricuspid valve stenosis. PULMONARY VALVE The pulmonary valve is not well visualized. Trivial pulmonary valve regurgitation. PERICARDIUM There is no pericardial effusion. oJse Burgos DO (Electronically Signed) Final Date:23 February 2017 09:42
[2017-02-23 09:52] LABS: AUTOMATED NEUTROPHIL # 3.7 TH/MM3 (1.8-7.7); BASOPHIL % 0.4 % (0.0-2.0); EOSINOPHIL # 0.1 TH/MM3 (0-0.4); EOSINOPHIL % 1.2 % (0.0-4.0); HEMATOCRIT 46.1 % (39.0-51.0); HEMO FLAGS DIFF FINAL; LYMPH % 31.6 % (9.0-44.0); MEAN CELL VOLUME 88.2 FL (80.0-100.0); MEAN CORPUSCULAR HEMOGLOBIN 30.9 PG (27.0-34.0); MONO % 6.8 % (0.0-8.0); PLATELET COUNT 158 TH/MM3 (150-450); RED BLOOD COUNT 5.23 MIL/MM3 (4.50-5.90); RED CELL DISTRIBUTION WIDTH 12.7 % (11.6-17.2); WHITE BLOOD COUNT 6.2 TH/MM3 (4.0-11.0)
[2017-02-23 09:55] LABS: BICARBONATE 22.2 MEQ/L (21.0-32.0); POTASSIUM 3.9 MEQ/L (3.5-5.1)
[2017-02-23 09:59] LABS: HDL CHOLESTEROL 37.7 MG/DL (40.0-60.0)
--- NOTE | 2017-02-23 11:03 | HHI.FPPN ---
Subjective Remarks No events overnight. Patient is status post day one after cardiac catheterization. He has "sensations" in his left chest that occur intermittently , however, he reports no pressure or pain in his chest. The pain is located in his left chest wall in a fairly defined location. There is no radiation of the pain. He has no shortness of breath or diaphoresis overnight. He has no lightheadedness. No calf tenderness. Reviewed cardiac catheterization results with him and discharge planning. He will follow up with his PCP back in [place] once he gets back home. He will also start taking aspirin for coronary artery disease. Objective Vitals Vital Signs Date Time Temp Pulse Resp B/P Pulse Ox O2 Delivery O2 Flow Rate FiO2 02/23/17 10:00 68 02/23/17 09:00 74 02/23/17 08:00 60 02/23/17 07:20 97.7 80 18 108/70 97 02/23/17 07:20 66 02/23/17 06:00 60 02/23/17 05:00 63 02/23/17 04:00 62 02/23/17 03:00 98.0 66 20 103/70 93 02/23/17 03:00 64 02/23/17 02:00 62 02/23/17 01:00 60 02/23/17 00:00 64 02/22/17 23:00 98.8 68 20 108/75 93 02/22/17 23:00 66 02/22/17 22:00 68 02/22/17 21:00 72 02/22/17 20:00 70 02/22/17 19:00 98.1 67 18 150/82 95 02/22/17 15:44 98 Nasal Cannula 2.00 02/22/17 14:59 70 16 106/73 99 Nasal Cannula 2 02/22/17 12:10 70 18 109/65 96 2 02/22/17 12:05 71 12 123/70 96 02/22/17 12:03 98 Nasal Cannula 2 02/22/17 12:00 70 18 136/87 94 Nasal Cannula 2 02/22/17 11:51 89 99 02/22/17 11:51 100 Nasal Cannula 2 02/22/17 11:29 98.2 70 17 141/97 98 I/O 02/22/17 02/22/17 02/22/17 02/23/17 02/23/17/19/17 07:00 15:00 23:00 07:00 15:00 23:00 Intake Total 980 ml Output Total 1000 ml Balance -20 ml Intake Oral 480 ml IV Total 500 ml Output Urine Total 1000 ml # Voids 3 Result Diagram: 02/23/17 0922 02/23/17 0922 Imaging Last 72 hours Impressions Chest X-Ray 02/22/17 1141 Signed Impressions: Service Date/Time: Wednesday, February 22, 2017 12:29 - CONCLUSION: No acute disease. Dao Becerra MD CT Angiography 02/22/17 0000 Signed Impressions: Service Date/Time: Wednesday, February 22, 2017 15:17 - CONCLUSION: 1. Negative examination. Jd Fox MD Objective Remarks GENERAL: Resting in bed, no distress, no diaphoresis, normal respirations SKIN: No rashes, ecchymoses or lesions. HEAD: Atraumatic. Normocephalic. No temporal or scalp tenderness. EYES: Pupils equal round and reactive. Extraocular motions intact. No scleral icterus. No injection or drainage. ENT: No nasal discharge. NECK: Trachea midline. No JVD or lymphadenopathy. CARDIOVASCULAR: Regular rate and rhythm without murmurs, gallops, or rubs. RESPIRATORY: Clear to auscultation. Breath sounds equal bilaterally. No wheezes , rales, or rhonchi. GASTROINTESTINAL: Abdomen soft, non-tender, nondistended. No hepato-splenomegaly , or palpable masses. No guarding. MUSCULOSKELETAL: No chest wall pain on palpation. NEUROLOGICAL: Awake and alert. A/P Assessment and Plan 56-year-old male, with no significant history, presented to the ED with left chest pain that is intermittent, now status post day one after cardiac catheterization Discharge Planning Plan for discharge today. Will start aspirin 81 mg daily for mild coronary artery disease detected on cardiac catheterization. He will follow up with his PCP as an outpatient and at least a one time visit with cardiology. Recommend a heart healthy diet and moderate daily exercise with weight loss to help with prevention. Problem List: (1) Left chest pressure Status: Acute Plan: Left chest pressure on admission. Differential is broad. CTA was negative , ruling out PE. Prinzmetal angina is a possibility. He had rib fractures at the site of pain which could be contributing to the pain. It could be costochondritis or GERD. Cardiac catheterization revealed minor coronary artery disease. He has superior takeoff of the left main vessel and mild disease of the distal PDA. His lipids are normal except a somewhat low HDL. His BMI is 31.3. Troponin and EKG's normal. ECHO showing mild reduced EF of 50-55% without valvular pathology. - Recommend a heart healthy diet. - Recommend weight loss with goal of <25 BMI, lose one to two pounds per week - Recommend graded moderate daily exercise for 30 mins a day - Start aspirin 81 mg daily - Does not smoke - Recommend no more than 5 oz alcohol per day - Follow up with PCP, and follow with hydraulic and plumbing installer at least one time. (2) FEN/PPX Status: Acute Plan: Fluids: PO fluids Nutrition: Heart healthy diet Dao Moses MD R3 Feb 23, 2017 11:03
--- NOTE | 2017-02-23 12:02 | HHI.FPPN ---
Subjective Remarks Medicine attending note: For a pleasant 56-year-old gentleman from [facility] traveling in the area admitted with a history of chest pain. Patient had been previously seen in another emergency room while traveling. At the time there was a shortness that the pain was not from ischemia. Patient presented to [facility] with additional complaints of chest pain and pressure. See resident history and physical for complete discussed details. Objective Vitals Vital Signs Date Time Temp Pulse Resp B/P Pulse Ox O2 Delivery O2 Flow Rate FiO2 02/23/17 10:00 68 02/23/17 09:00 74 02/23/17 08:00 60 02/23/17 07:20 97.7 80 18 108/70 97 02/23/17 07:20 66 02/23/17 06:00 60 02/23/17 05:00 63 02/23/17 04:00 62 02/23/17 03:00 98.0 66 20 103/70 93 02/23/17 03:00 64 02/23/17 02:00 62 02/23/17 01:00 60 02/23/17 00:00 64 02/22/17 23:00 98.8 68 20 108/75 93 02/22/17 23:00 66 02/22/17 22:00 68 02/22/17 21:00 72 02/22/17 20:00 70 02/22/17 19:00 98.1 67 18 150/82 95 02/22/17 15:44 98 Nasal Cannula 2.00 02/22/17 14:59 70 16 106/73 99 Nasal Cannula 2 02/22/17 12:10 70 18 109/65 96 2 02/22/17 12:05 71 12 123/70 96 02/22/17 12:03 98 Nasal Cannula 2 02/22/17 12:00 70 18 136/87 94 Nasal Cannula 2 I/O 02/22/17 02/22/17 02/22/17 02/23/17 02/23/17 02/23/17 06:59 14:59 22:59 06:59 14:59 22:59 Intake Total 980 ml Output Total 1000 ml Balance -20 ml Intake Oral 480 ml IV Total 500 ml Output Urine Total 1000 ml # Voids 3 Result Diagram: 02/23/1792102/23/17921 Other Results Vital signs noted. Gen. appearance: Middle-aged gentleman pleasant in conversation, normal affect. at bedside in chair. HEENT: Grossly nonlocalizing. Cardiac: S1-S2, no S3 or murmurs. Lungs: Clear to auscultation. Abdomen: Soft, slightly protuberant, nontender no masses or organomegaly. Extremities: Right distal forearm isn't soft splint protecting radial artery Objective Remarks GENERAL: Resting in bed, no distress, no diaphoresis, normal respirations SKIN: No rashes, ecchymoses or lesions. HEAD: Atraumatic. Normocephalic. No temporal or scalp tenderness. EYES: Pupils equal round and reactive. Extraocular motions intact. No scleral icterus. No injection or drainage. ENT: No nasal discharge. NECK: Trachea midline. No JVD or lymphadenopathy. CARDIOVASCULAR: Regular rate and rhythm without murmurs, gallops, or rubs. RESPIRATORY: Clear to auscultation. Breath sounds equal bilaterally. No wheezes , rales, or rhonchi. GASTROINTESTINAL: Abdomen soft, non-tender, nondistended. No hepato-splenomegaly , or palpable masses. No guarding. MUSCULOSKELETAL: No chest wall pain on palpation. NEUROLOGICAL: Awake and alert. A/P Assessment and Plan Clinical assessment 56-year-old gentleman presenting with chest pain consistent with but not diagnostic of ischemic origin. Patient has undergone a cardiac catheterization revealing no coronary disease to explain the chest pain. Differential diagnosis for the chest pain could include deferred pain from an previous rib fracture, costochondritis, GERD, esophageal spasm. Plans will be for discharge and the patient will follow up with his primary physician in [place]. Patient seen and examined. Case reviewed and discussed with resident team. Agree with plan of care as discussed with me and documented in the resident note. Discharge Planning Plan for discharge today. Will start aspirin 81 mg daily for mild coronary artery disease detected on cardiac catheterization. He will follow up with his PCP as an outpatient and at least a one time visit with cardiology. Recommend a heart healthy diet and moderate daily exercise with weight loss to help with prevention. Problem List: (1) Left chest pressure Status: Acute Plan: Left chest pressure on admission. Differential is broad. CTA was negative , ruling out PE. Prinzmetal angina is a possibility. He had rib fractures at the site of pain which could be contributing to the pain. It could be costochondritis or GERD. Cardiac catheterization revealed minor coronary artery disease. He has superior takeoff of the left main vessel and mild disease of the distal PDA. His lipids are normal except a somewhat low HDL. His BMI is 31.3. Troponin and EKG's normal. ECHO showing mild reduced EF of 50-55% without valvular pathology. - Recommend a heart healthy diet. - Recommend weight loss with goal of <25 BMI, lose one to two pounds per week - Recommend graded moderate daily exercise for 30 mins a day - Start aspirin 81 mg daily - Does not smoke - Recommend no more than 5 oz alcohol per day - Follow up with PCP, and follow with flexboard operator at least one time. (2) FEN/PPX Status: Acute Plan: Fluids: PO fluids Nutrition: Heart healthy diet Aubrey Warner MD Feb 23, 2017 12:02
[2017-02-23] MEDS ORDERED: IOHEXOL 350 MG/ML 100 ML BTL (for Cath Lab) OTHER ONE (12:09)
--- NOTE | 2017-02-23 12:36 | PD.CARD.PN ---
Subjective Subjective Remarks No events overnight Telemetry with normal sinus rhythm No chest pain overnight Objective Medications Current Medications Sodium Chloride (NS Flush) 2 ml UNSCH PRN IVF FLUSH AFTER USING IV ACCESS Last administered on 02/23/17 09:12; Start 02/22/17 at 11:45; Stop 02/23/17 at 12:14 ; Status DC Nitroglycerin 0.4 mg 0.4 mg Q5M SL Last administered on 02/22/17 11:50; Start 02/22/17 at 11:45; Stop 02/22/17 at 11:56; Status DC Sodium Chloride (NS 500 ml Inj) 500 ml @ 500 mls/hr ONCE ONCE IV Last administered on 02/22/17 11:45; Start 02/22/17 at 11:45; Stop 02/22/17 at 12:44 ; Status DC Iohexol 75 ml 75 ml STK-MED ONCE IV Last administered on 02/22/17 14:00; Start 02/22/17 at 14:00; Stop 02/22/17 at 16:06; Status DC Heparin Sodium/ Sodium Chloride (Heparin-NS/Pf Inj) 500 ml @ As Directed STK- MED ONCE .ROUTE Last administered on 02/22/17 18:02; Start 02/22/17 at 18:02; Stop 02/22/17 at 18:03; Status DC Midazolam HCl (Versed Inj) 2 mg STK-MED ONCE .ROUTE Last administered on 18:17; Start 02/22/17 at 18:03; Stop 02/22/17 at 18:04; Status DC Fentanyl Citrate (fentaNYL INJ) 100 mcg STK-MED ONCE .ROUTE Last administered on 02/22/17 18:18; Start 02/22/17 at 18:03; Stop 02/22/17 at 18:04; Status DC Verapamil HCl (Isoptin Inj) 5 mg STK-MED ONCE .ROUTE Last administered on 18:19; Start 02/22/17 at 18:03; Stop 02/22/17 at 18:04; Status DC Heparin Sodium (Porcine) 29627 units 10,000 units STK-MED ONCE .ROUTE Last administered on 02/22/17 18:19; Start 02/22/17 at 18:03; Stop 02/22/17 at 18:04 ; Status DC Nitroglycerin (Nitroglycerin Inj) 5 ml @ As Directed STK-MED ONCE .ROUTE Last administered on 02/22/17t 18:19; Start 02/22/17 at 18:05; Stop 02/22/17 at 18:06 ; Status DC Miscellaneous Information 1 ONCE ONCE XX ; Start 02/22/17 at 19:30; Stop at 19:31; Status DC Aspirin (Aspirin Chew) 81 mg DAILY CHEW Last administered on 02/23/17 09:12; Start 02/23/17 at 09:00; Stop 02/23/17 at 12:14; Status DC Vital Signs / I&O Vital Signs Date Time Temp Pulse Resp B/P Pulse Ox O2 Delivery O2 Flow Rate FiO2 02/23/17 11:10 97.9 74 18 109/72 95 02/23/17 10:00 68 02/23/17 09:00 74 02/23/17 08:00 60 02/23/17 07:20 97.7 80 18 108/70 97 02/23/17 07:20 66 02/23/17 06:00 60 02/23/17 05:00 63 02/23/17 04:00 62 02/23/17 03:00 98.0 66 20 103/70 93 02/23/17 03:00 64 02/23/17 02:00 62 02/23/17 01:00 60 02/23/17 00:00 64 02/22/17 23:00 98.8 68 20 108/75 93 02/22/17 23:00 66 02/22/17 22:00 68 02/22/17 21:00 72 02/22/17 20:00 70 02/22/17 19:00 98.1 67 18 150/82 95 02/22/17 15:44 98 Nasal Cannula 2.00 02/22/17 14:59 70 16 106/73 99 Nasal Cannula 2 I/O 02/22/17 02/22/17 02/22/17 02/23/17 02/23/17 02/23/17 06:59 14:59 22:59 06:59 14:59 22:59 Intake Total 980 ml Output Total 1000 ml Balance -20 ml Intake Oral 480 ml IV Total 500 ml Output Urine Total 1000 ml # Voids 3 Physical Exam GENERAL: NAD, AAOx3 SKIN: Warm and dry. HEAD: Atraumatic. Normocephalic. EYES: Pupils equal and round. No scleral icterus. No injection or drainage. ENT: No nasal bleeding or discharge. Mucous membranes pink and moist. NECK: Trachea midline. No JVD. CARDIOVASCULAR: Regular rate and rhythm. RESPIRATORY: No accessory muscle use. Clear to auscultation. Breath sounds equal bilaterally. GASTROINTESTINAL: Abdomen soft, non-tender, nondistended. Hepatic and splenic margins not palpable. MUSCULOSKELETAL: Extremities without clubbing, cyanosis, or edema. No obvious deformities. Right radial no hematoma, neurovascularly intact distally NEUROLOGICAL: Awake and alert. No obvious cranial nerve deficits. Motor grossly within normal limits. Five out of 5 muscle strength in the arms and legs. Normal speech. PSYCHIATRIC: Appropriate mood and affect; insight and judgment normal. Laboratory Laboratory Tests Test 02/22/17 02/23/17 17:40 09:22 Troponin I LESS THAN 0.02 NG/ML White Blood Count 6.2 TH/MM3 Red Blood Count 5.23 MIL/MM3 Hemoglobin 16.1 GM/DL Hematocrit 46.1 % Mean Corpuscular Volume 88.2 FL Mean Corpuscular Hemoglobin 30.9 PG Mean Corpuscular Hemoglobin 35.0 % Concent Red Cell Distribution Width 12.7 % Platelet Count 158 TH/MM3 Mean Platelet Volume 8.9 FL Neutrophils (%) (Auto) 60.0 % Lymphocytes (%) (Auto) 31.6 % Monocytes (%) (Auto) 6.8 % Eosinophils (%) (Auto) 1.2 % Basophils (%) (Auto) 0.4 % Neutrophils # (Auto) 3.7 TH/MM3 Lymphocytes # (Auto) 2.0 TH/MM3 Monocytes # (Auto) 0.4 TH/MM3 Eosinophils # (Auto) 0.1 TH/MM3 Basophils # (Auto) 0.0 TH/MM3 CBC Comment DIFF FINAL Differential Comment Sodium Level 138 MEQ/L Potassium Level 3.9 MEQ/L Chloride Level 108 MEQ/L Carbon Dioxide Level 22.2 MEQ/L Anion Gap 8 MEQ/L Blood Urea Nitrogen 9 MG/DL Creatinine 0.95 MG/DL Estimat Glomerular Filtration 81 ML/MIN Rate Random Glucose 136 MG/DL Calcium Level 8.3 MG/DL Triglycerides Level 193 MG/DL Cholesterol Level 165 MG/DL LDL Cholesterol 89 MG/DL HDL Cholesterol 37.7 MG/DL Cholesterol/HDL Ratio 4.37 RATIO Assessment and Plan Problem List: (1) Chest pain (2) CAD (coronary artery disease) Assessment and Plan 1) Chest pain Catheterization showing small PDA with 50% lesion distally covering a small territory, not felt to be culprit. ASA 81mg 2) May need Holter or Event monitor if still feeling these episode, possible arrhythmogenic 3) Cardiovascularly stable for discharge today 4) Will follow up with his PCP on Saturday when he gets back to [place] DO Feb 23, 2017 12:35
--- NOTE | 2017-02-23 15:41 | EKG ---
Date Performed: 02/22/2017 Time Performed: 11:52:20 PTAGE: 56 years EKG: Sinus rhythm NORMAL ECG NO PREVIOUS TRACING DOCTOR: Mando Ochoa Interpretating Date/Time 02/23/2017 15:41:08
--- NOTE | 2017-02-23 15:41 | EKG ---
Date Performed: 02/23/2017 Time Performed: 04:43:18 PTAGE: 56 years EKG: Sinus rhythm Compared to prior tracing no significant change Normal ECG PREVIOUS TRACING : 02/22/2017 11.52 DOCTOR: Mando Ochoa Interpretating Date/Time 02/23/2017 15:41:16
== END 2017-02-23 12:10 | disposition home or self-care (01) | DRG 287 ==
LOC: NEPE 11:27 → NEDA 13:12 → OBSVTOIN 16:59 → HCIS 19:23
PROVIDERS: ADMIT Family Medicine; ATTEND Family Medicine
PROC: 4A023N7 Measurement of Cardiac Sampling and Pressure, Left Heart, Percutaneous Approach (ICD-10-PCS; principal; 2017-02-22)
PROC: B2111ZZ Fluoroscopy of Multiple Coronary Arteries using Low Osmolar Contrast (ICD-10-PCS; 2017-02-22)
PROC: B240ZZ3 Ultrasonography of Single Coronary Artery, Intravascular (ICD-10-PCS; 2017-02-22)
DX: R07.89 Other chest pain (principal); I10 Essential (primary) hypertension; I25.10 Atherosclerotic heart disease of native coronary artery without angina pectoris; R42 Dizziness and giddiness; R61 Generalized hyperhidrosis; Z82.49 Family history of ischemic heart disease and other diseases of the circulatory system; Z68.31 Body mass index [BMI] 31.0-31.9, adult
CPT/HCPCS: 71010; 71275; 80048; 80061; 82550; 82552; 83690; 83735; 84484; 85025; 85610; 85730; 92978; 93005; 93306; 93454; 96365; C1753; C1769; C1887; C1893; J1644; J2250; J3010; J7040; Q9967